=== PATIENT | female | born 1985 | race Caucasian/White ===

== ENCOUNTER 2017-03-06 11:18 | Emergency (ER) | payer MEDICAID ==
[~2017-03-06] VITALS: Ht 160 cm; Wt 77.7 kg
[~2017-03-06 11:18] MED LIST: ATOM80CA PO; DIAZ10TA PO; DIVA500T2 PO; DULO60CA7 PO; LEVO50TA5 PO; LEVO75TA5 PO; RISP0.2518 PO
[2017-03-06] MEDS ORDERED: DOCUSATE 50 MG/5 ML ORAL SOL ONE (12:03)
[2017-03-06] MEDS ORDERED: ALBUTEROL/IPRATROPIUM 2.5MG/0.5MG, 3 ML ONE (12:22)
[2017-03-06] MEDS ORDERED: ALBUTEROL/IPRATROPIUM 2.5MG/0.5MG, 3 ML NPPB ONE (12:30)
[2017-03-06 13:53] VITALS: BP 110/74
== END 2017-03-06 13:55 | disposition home or self-care (01) ==
LOC: ED 13:04
DX: H61.21 Impacted cerumen, right ear (principal); J02.9 Acute pharyngitis, unspecified
CPT/HCPCS: 69210; 71010; 94640; J7620

== ENCOUNTER 2017-09-02 19:13 | Emergency (ER) | payer MEDICAID ==
[~2017-09-02] VITALS: Ht 160 cm; Wt 77.0 kg
[2017-09-02 19:14] VITALS: BP 133/82
== END 2017-09-02 20:22 | disposition home or self-care (01) ==
LOC: ED 20:10
DX: K91.840 Postprocedural hemorrhage of a digestive system organ or structure following a digestive system procedure (principal); R04.0 Epistaxis
CPT/HCPCS: 99283

== ENCOUNTER 2017-10-29 11:54 | Emergency (ER) | payer MEDICAID ==
[~2017-10-29] VITALS: Ht 160 cm; Wt 72.9 kg
[2017-10-29 11:55] VITALS: BP 113/80
== END 2017-10-29 12:38 | disposition home or self-care (01) ==
LOC: ED 12:35
DX: L50.9 Urticaria, unspecified (principal); F17.200 Nicotine dependence, unspecified, uncomplicated; Z90.710 Acquired absence of both cervix and uterus
CPT/HCPCS: 99283

== ENCOUNTER 2017-12-13 00:03 | Emergency (ER) | payer MEDICAID ==
[~2017-12-13] VITALS: Ht 160 cm; Wt 71.5 kg
[2017-12-13 00:04] VITALS: BP 124/85
== END 2017-12-13 01:02 | disposition home or self-care (01) ==
LOC: ED 00:50
DX: R05 Cough (principal); F17.210 Nicotine dependence, cigarettes, uncomplicated
CPT/HCPCS: 71046; 99284

== ENCOUNTER 2018-07-25 17:15 | Emergency (ER) | payer MEDICAID, OTHER ==
[~2018-07-25] VITALS: Ht 162.6 cm; Wt 69.0 kg
[2018-07-25] MEDS ORDERED: IBUPROFEN 200 MG TABLET PO ONE (17:30)
[2018-07-25] MEDS ORDERED: ACETAMINOPHEN 325 MG TABLET PO ONE ×2 (17:30→19:00)
[2018-07-25] MEDS ORDERED: SODIUM CHLORIDE 0.9% 1,000ML IVBOLUS ONE ×2 (18:00→19:00)
[2018-07-25] MEDS ORDERED: ACETAMINOPHEN 325 MG TABLET ONE ×2 (18:01→18:39)
[2018-07-25] MEDS ORDERED: IBUPROFEN 200 MG TABLET ONE (18:01)
[2018-07-25 18:32] LABS: RAPID INFLUENZA A Negative (Negative); RAPID INFLUENZA B Negative (Negative)
[2018-07-25 19:06] LABS: CULTURE INDICATED? NO; MICROSCOPIC NOT IND
[2018-07-25 19:07] LABS: ALBUMIN 4.1 g/dL (3.4-5.0); ANION GAP 10 mmol/L (5-15); CHLORIDE 105 mmol/L (98-107)
[2018-07-25 19:11] LABS: ALANINE AMINOTRANSFERASE 32 U/L (12-78); ALKALINE PHOSPHATASE 90 U/L (45-117); BILIRUBIN,TOTAL 0.5 mg/dL (0.2-1.0); CREATININE 0.66 mg/dL (0.55-1.02); TOTAL PROTEIN 7.9 g/dL (6.4-8.2)
[2018-07-25 19:16] LABS: MD YES; MEAN CORPUSCULAR HEMOGLOBIN 31.6 pg (27.0-34.8); MEAN CORPUSCULAR HGB CONC 35.1 g/dL (32.4-35.8); MEAN CORPUSCULAR VOLUME 90.1 fL (80-100); PLATELET COUNT 115 x10^3/uL (130-400); RED CELL DISTRIBUTION WIDTH 12.7 % (9.6-15.2)
[2018-07-25 19:24] LABS: EOS#(MANUAL) 0.02 x10^3/uL (0.0-0.4); EOS% (MANUAL) 1 % (1-7); LYMPH#(MANUAL) 1.43 x10^3/uL (1-3.4); LYMPHS% (MANUAL) 68 % (22-44); MONOS% (MANUAL) 24 % (2-9); REACTIVE LYMPHS # (MANUAL) 0.08 x10^3/uL (0-0); REACTIVE LYMPHS % (MANUAL) 4 % (0-0); SEG#(MANUAL) 0.06 x10^3/uL (1.8-6.8); SEGS% (MANUAL) 3 % (42-75)
[2018-07-25 19:25] LABS: <PLATELET ESTIMATE> ADEQUATE; ANISOCYTOSIS 1+; LARGE PLATELETS 1+
[2018-07-25 19:46] LABS: FREE T4 (FREE THYROXINE) 0.98 ng/dL (0.76-1.46)
[2018-07-25 19:54] LABS: AMPHETAMINE SCREEN, URINE Negative (Negative); BARBITURATE SCREEN, URINE Negative (Negative); BENZODIAZEPINE SCREEN, URINE Negative (Negative); CANNABINOID SCREEN, URINE Negative (Negative); COCAINE SCREEN, URINE Negative (Negative); METHADONE SCREEN, URINE Negative (Negative); OPIATE SCREEN, URINE Negative (Negative)
[2018-07-25] MEDS ORDERED: KETOROLAC 30 MG/1 ML ONE (20:20)
[2018-07-25] MEDS ORDERED: KETOROLAC 60 MG/2 ML IVPush ONE (20:30)
[2018-07-25 21:31] VITALS: BP 97/50
[2018-07-25] MEDS ORDERED: BICILLIN-LA 1,200,000 UNITS/2 ML IM ONE (22:00)
== END 2018-07-25 22:31 | disposition home or self-care (01) ==
LOC: ED 22:15
DX: B34.9 Viral infection, unspecified (principal); E86.0 Dehydration; R50.9 Fever, unspecified; Z90.710 Acquired absence of both cervix and uterus; F17.200 Nicotine dependence, unspecified, uncomplicated
CPT/HCPCS: 36415; 71045; 80053; 80307; 81003; 83605; 84439; 84443; 84481; 85025; 86308; 87040; 87081; 87400; 87880; 93005; 96361; 96372; 96374; 99285; J0561; J1885; J7030

== ENCOUNTER 2018-07-27 11:47 | Emergency (ER) | payer OTHER ==
[~2018-07-27] VITALS: Ht 160 cm; Wt 69.3 kg
[2018-07-27 11:57] VITALS: BP 95/68
[2018-07-27] MEDS ORDERED: DEXAMETHASONE 4 MG/ML, 1ML IM ONE (12:30)
[2018-07-27] MEDS ORDERED: DEXAMETHASONE 4 MG TABLET ONE (12:30)
== END 2018-07-27 12:57 | disposition home or self-care (01) ==
LOC: ED 12:56
DX: J02.9 Acute pharyngitis, unspecified (principal); F17.200 Nicotine dependence, unspecified, uncomplicated
CPT/HCPCS: 99283

== ENCOUNTER 2018-08-04 01:52 | Emergency (ER) | payer SELFPAY ==
[~2018-08-04] VITALS: Ht 160 cm; Wt 70.8 kg
[2018-08-04 02:30] LABS: BASOPHILS # (AUTO) 0.05 x10^3/uL (0-0.1); BASOPHILS % (AUTO) 0 % (0-1); EOSINOPHILS % (AUTO) 2 % (1-7); LYMPHOCYTES # (AUTO) 4.21 x10^3/uL (1-3.4); LYMPHOCYTES % (AUTO) 30 % (22-44); MD NO; MEAN CORPUSCULAR HGB CONC 34.5 g/dL (32.4-35.8); MEAN CORPUSCULAR VOLUME 89.9 fL (80-100); MEAN PLATELET VOLUME 8.1 fL (7.4-10.4); MONOCYTES # (AUTO) 1.19 x10^3/uL (0.2-0.8); MONOCYTES % (AUTO) 9 % (2-9); NEUTROPHILS # (AUTO) 8.17 x10^3/uL (1.8-6.8); NEUTROPHILS % (AUTO) 59 % (42-75); PLATELET COUNT 367 x10^3/uL (130-400); RED BLOOD COUNT 4.71 x10^6/uL (3.82-5.3); RED CELL DISTRIBUTION WIDTH 12.8 % (9.6-15.2)
[2018-08-04] MEDS ORDERED: ACETAMINOPHEN 325 MG TABLET PO ONE (02:30)
[2018-08-04] MEDS ORDERED: SODIUM CHLORIDE FLUSH 10ML SYR IVF ONE (02:30)
[2018-08-04] MEDS ORDERED: ONDANSETRON ODT 4 MG PO ONE (02:30)
[2018-08-04] MEDS ORDERED: ONDANSETRON ODT 4 MG ONE (02:32)
[2018-08-04] MEDS ORDERED: ACETAMINOPHEN 325 MG TABLET ONE (02:32)
[2018-08-04 02:44] LABS: ALBUMIN 3.8 g/dL (3.4-5.0); ANION GAP 8 mmol/L (5-15); CALCIUM 9.4 mg/dL (8.5-10.1); CHLORIDE 104 mmol/L (98-107); CREATININE 0.71 mg/dL (0.55-1.02)
[2018-08-04 02:48] LABS: ALANINE AMINOTRANSFERASE 42 U/L (12-78); ALKALINE PHOSPHATASE 126 U/L (45-117); BILIRUBIN,TOTAL 0.3 mg/dL (0.2-1.0); TOTAL PROTEIN 8.1 g/dL (6.4-8.2)
[2018-08-04 03:05] LABS: MICROSCOPIC AUTO
[2018-08-04 03:06] LABS: CULTURE INDICATED? NO
[2018-08-04] MEDS ORDERED: OMNIPAQUE 350 MG/ML, 100ML BOTTLE ONE (03:12)
[2018-08-04 03:20] VITALS: BP 110/74
== END 2018-08-04 03:42 | disposition home or self-care (01) ==
LOC: ED 02:18
DX: R10.31 Right lower quadrant pain (principal); R11.0 Nausea; Z90.710 Acquired absence of both cervix and uterus
CPT/HCPCS: 36415; 74177; 80053; 81001; 83690; 84703; 85025; 99285; Q0162; Q9967